=== PATIENT | female | born 2000 | race Caucasian/White ===

== ENCOUNTER 2024-07-19 13:48 | Outpatient (OUT) | payer OTHER, SELFPAY ==
--- OUTSIDE RECORDS SUMMARY | 2024-07-19 14:00 | XMS_ITS | Encounter Summary ---
Author Organization [facility] Address [address] [place] [address] Care Team Providers Care Elder Assistant Name Role Phone Margueriet Hayes MD Primary Care Provider [phone] Marguerite Hayes MD Unavailable [phone] Simi Marie CUSTOMS CONSULTANT Unavailable [phone] Karey Lan CUSTOMS CONSULTANT Unavailable [phone] Encounter Details Date Type Department Care Team (Late st Contact Info) Description 07/04/2022 Abstract [facility] [address] [place] [id number] Alexandra Jordan, DPM [address] [place], [place] [id number] Social History Tobacco Use Types Packs/Day Years Used Date Smoking Tobacco: Never Tobacco Cessation:Counseling Given: Not Answered Alcohol Use Standard Drinks/Week Comments Never 0 (1 standard drink = 0.6 oz pur e alcohol) Caffeine intake: none Comments Unknown Sex and Gender Information Value Date Recorded Sex Assigned at Not on file Legal Sex Female 7:17 PM EDT Gender Identity Female 06/30/2022 10:57 AM EDT Sexual Orientation Not on file documented as of this encounter Plan of Treatment Not on file documented as of this encounter Visit Diagnoses Not on filedocumented in this encounter Care Teams Elder Assistant Relationship Specialty Start Date End Date Marguerite Hayes MD [address] [place] [address] PCP - General Family Medicine 07/05/22 Marguerite Hayes MD [address] [place] [address] [facility] 05/16/23 Simi Marie NP [address] [place] [address] [facility] 08/15/23 Karey Lan NP [address] [place] [address] [facility] 11/15/23 documented as of this encounter
--- OUTSIDE RECORDS SUMMARY | 2024-07-19 14:00 | XMS_ITS | Clinical Summary ---
Author Organization [facility] tem Address [id number] [address] [place] [address] Care Team Providers Care Video Production Coordinator Name Role Phone Marguerite Hayes MD Primary Care Provider [phone] Allergies Active Allergy Reactions Criticality Noted Date Comments Ibuprofen Swelling 07/04/2022 Medications cetirizine (ZyrTEC) 10 mg tablet Take 1 tablet (10 mg total) by mouth in the morning. Active zolpidem (AMBIEN) 5 mg tabletIndication s:Other insomnia Take 1 tablet (5 mg total) by mouth nightly as needed for sleep. 1 tablet 11/08/2023 Active levETIRAcetam (KEPPRA) 500 mg tabletIndication s:Seizure-like activity (CMS-HCC) Take 1 tablet (500 mg total) by mouth in the morning and 1 tablet (500 mg total) before bedtime. 180 tablet 2 01/24/2024 Active nortriptyline (PAMELOR) 25 mg capsuleIndicatio ns:Chronic migraine without aura without status migrainosus, not intractable Take 1 capsule (25 mg total) by mouth nightly. 90 capsule 2 01/24/2024 Active Active Problems No known active problems Encounters Date Type Department Care Team Description 07/10/2024 Telephone [facility] - Wilber Garduno MD [address] [place] [address] Jo-Ann Bhandari from Last 3 Months Social History Tobacco Use Types Packs/Day Years Used Date Smoking Tobacco: Never Smokeless Tobacco: Never Tobacco Cessation:Counseling Given: Not Answered Alcohol Use Standard Drinks/Week Comments Not Currently 0 (1 standard drink = 0.6 oz pur e alcohol) Childcare Answer Date Recorded Childcare Unknown 01/12/2020 Employment Answer Date Recorded Employment Unknown 01/12/2020 Hunger Screening Answer Date Recorded Within the past 12 months we worried whether our food would run out before we got money to buy more. Never True 02/05/2023 Within the past 12 months th e food we bought just didn't last and we didn't have money to get more. Never True 02/05/2023 Purpose - Life Answer Date Recorded Purpose and direction in life Unknown Comments No Sex and Gender Information Value Date Recorded Sex Assigned at Not on file Legal Sex Female 11:58 AM EDT Gender Identity Not on file Sexual Orientation Not on file Last Filed Vital Signs Vital Sign Reading Time Taken Comments Blood Pressure 111/74 02/18/2024 10:36 AM EST Pulse 96 02/18/2024 10:36 AM EST Temperature 36.8 C (98.2 F) 02/18/2024 10:36 AM EST Respiratory Rate 18 02/18/2024 10:36 AM EST Oxygen Saturation 100% 02/18/2024 10:36 AM EST Inhaled Oxygen Concentration - - Weight 57.2 kg (126 lb) 02/18/2024 10:36 AM EST Height 154.9 cm (5' 1 ) 02/18/2024 10:36 AM EST Body Mass Index 23.81 02/18/2024 10:36 AM EST Plan of Treatment Health Maintenance Due Date Last Done Comments Depression Screening 2012 Pap Smear 2021 COVID-19 Vaccine (3 2023-2 5 season) 2023 01/13/2021, 10/10/2020 Influenza Vaccine 10/15/2024 12/22/2018 Adult BMI Screening 02/17/2025 02/18/2024 Tobacco Screening 02/17/2025 02/18/2024 DTaP,Tdap and Td Vaccines (8 - Td or Tdap) 06/17/2030 06/17/2020, 08/30/2013, 10/10/2006, Additional history exists Medical Devices Not on file Insurance [place] [employer] Advance Directives * Full Code (Latest Code Status on File) Date Activated Date Inactivated Comments 07/11/2020 7:14 PM 07/11/2020 9:54 PM Care Teams Video Production Coordinator Relationship Specialty Start Date End Date Marguerite Hayes MD [address] [place] [address] PCP - General Family Medicine 01/12/20
--- OUTSIDE RECORDS SUMMARY | 2024-07-19 14:00 | XMS_ITS | Encounter Summary ---
Author Organization [facility] Address [id number] [address] [place] [address] Care Team Providers Care Glaze Mixer Name Role Phone Marguerite Hayes MD Primary Care Provider [phone] Encounter Details Date Type Department Care Team (Late st Contact Info) Description 10/14/2023 Telephone [facility] - Wilber Garduno MD [address] [address] [place] Social History Tobacco Use Types Packs/Day Years Used Date Smoking Tobacco: Never Smokeless Tobacco: Never Alcohol Use Standard Drinks/Week Comments Yes 0 (1 standard drink = 0.6 oz pur e alcohol) Twice monthly Childcare Answer Date Recorded Childcare Unknown 01/12/2020 [...] on file Sexual Orientation Not on file documented as of this encounter Plan of Treatment Not on file documented as of this encounter Visit Diagnoses Not on filedocumented in this encounter Care Teams Glaze Mixer Relationship Specialty Start Date End Date Marguerite Hayes MD [address] [place] [address] PCP - General Family Medicine 01/12/20 documented as of this encounter
--- OUTSIDE RECORDS SUMMARY | 2024-07-19 14:00 | XMS_ITS | Encounter Summary ---
Author Organization [facility] Address [id number] [address] [place] [address] Care Team Providers Care Office Manager Executive Assistant Name Role Phone Marguerite Hayes MD Primary Care Provider [phone] Encounter Details Date Type Department Care Team (Late st Contact Info) Description 07/10/2024 Telephone [facility] - Wilber Garduno MD [address] [facility] [address] [address] Jo-Ann Bhandari Social History Tobacco Use Types Packs/Day Years Used Date Smoking Tobacco: Never Smokeless Tobacco: Never Alcohol Use Standard Drinks/Week Comments Not Currently [...] on file documented as of this encounter Miscellaneous Notes * Telephone Encounter - Jo-Ann Bhandari - 07/10/2024 10:10 AM EDT Boom called in to let JAMIE know that she is and her OB wants to know is she can deliver danuta level 1. Also she states that the Keppra is making her drowsy now and is there something else shecan take? * Telephone Encounter - Wilber Garduno MD - 07/10/2024 10:10 AM EDT If Gorge is making her too drowsy, I suggest taking 1/2 tablet (250 mg) in the morning, and a whole pill (500 mg) at night. Call if there is any seizure activity. Regarding the question from her sales and marketing coordinator, I have no idea what a ???level 1?? is. documented in this encounter Plan of Treatment Not on file documented as of this encounter Visit Diagnoses Not on filedocumented in this encounter Care Teams Office Manager Executive Assistant Relationship Specialty Start Date End Date Marguerite Hayes MD [address] [place] [address] PCP - General Family Medicine 01/12/20 documented as of this encounter
--- OUTSIDE RECORDS SUMMARY | 2024-07-19 14:00 | XMS_ITS | Clinical Summary ---
Author Organization [facility] Address [address] [place] [address] Care Team Providers Care Release Specialist Name Role Phone Marguerite Hayes MD Primary Care Provider [phone] Karey Lan NP Unavailable [phone] Allergies Active Allergy Reactions Criticality Noted Date Comments Ibuprofen Swelling 06/14/2022 Medications cetirizine (ZyrTEC) 5 MG chewable tablet Chew Daily. Ac tive multivitamin () 27-0.8 MG tabletIndication s:Wellness examination Take 1 tablet by mouth Daily 30 tablet 3 5 Active levETIRAcetam (Keppra) 500 MG tabletIndication s:Seizure Take 500 mg by mouth in the morning and 500 mg before bedtime. 07/05/19 25 Discontinu ed(Pregnan cy) nortriptyline (Pamelor) 50 MG capsuleIndicatio ns:Sleeping difficulty,Anxie ty TAKE 1 CAPSULE BY MOUTH AT BEDTIME 90 capsule 1 5 07/05/19 25 Discontinu ed(Pregnan cy) Active Problems Problem Noted Date Diagnosed Date Seizures 05/02/2024 Intractable migraine with status migrainosus Bipolar 1 disorder 05/02/2024 Fibromyalgia 10/25/2022 Estimated Date of Delivery Comme nts Yes 01/27/2025 Based on last me nstrual period of 04/22/2024 (Exact Date) Encounters Date Type Department Care Team Description 07/04/2024 10:30 AM EDT Routine [facility] [address] [place] [address] Floro, Juliet L, CNM examination or test, positive result (Primary Dx); Encounter for supervision of other normal , first trimester; Seizure disorder (CMS/HCC) 07/04/2024 10:00 AM EDT Ancillary Procedure [facility] ULTR[facility] [address] [facility] [address] [place] [address] Unspecified ovarian cyst, right side 07/04/2024 Travel 06/19/2024 Results Follow-Up [facility] [address] [facility] [place] [address] Marguerite Edwards MA 06/18/2024 Orders Only [facility] [address] [facility] [place] [address] Juliet Sosa CNM examination or test, positive result (Primary Dx) 06/15/2024 8:30 AM EDT Ancillary Procedure [facility] [address] [facility] [address] [place] [address] Amenorrhea 06/15/2024 Travel 05/24/2024 Refill [facility] FM [address] [facility] [place] [address] Karey Lan NP Sleeping difficulty; Anxiety 05/22/2024 11:00 AM EDT Social Work [facility] BH [address] [facility] [place] [address] Keshia Mcneill, LAY OUT CARPENTER Sleeping difficulty; Anxiety; Bipolar 1 disorder (CMS/HCC) 05/22/2024 Bamboo flowsheet [facility] [address] [facility] [place] [address] Keshia Mcneill, LAY OUT CARPENTER 05/22/2024 Travel 05/21/2024 Orders Only [facility] [address] [facility] [place] [address] Juliet Sosa CNM Amenorrhea 05/07/2024 Telephone [facility] [address] [facility] [place] [address] Keshia Mcneill, LAY OUT CARPENTER 05/02/2024 12:30 PM EDT Office Visit [facility] FM [address] [facility] [place] [address] Karey Lan NP Wellness examination (Primary Dx); Sleeping difficulty; Hx of iron deficiency anemia; Anxiety; Vaping nicotine dependence, tobacco product; Bipolar 1 disorder (CMS/HCC); Fibromyalgia; Intractable migraine with status migrainosus, unspecified migraine type (CMS/HCC); Seizures (CMS/HCC) 05/02/2024 Bamboo flowsheet [facility] [address] [place] [address] Karey Lna NP 05/02/2024 Travel 04/25/2024 Telephone [facility] [address] [place] [address] Bria Aleman MA 04/20/2024 Telephone [facility] [address] [place] [address] Karey Lan NP from Last 3 Months Family History Relation Name Status Comments Father Alive Mother Alive Social History Tobacco Use Types Packs/Day Years Used Date Smoking Tobacco: Every Day Smokeless Tobacco: Never Tobacco Cessation:Ready to Q uit: Not Asked; Counseling Given: Not Answered Comments:Vapes daily Alcohol Use Standard Drinks/Week Comments Not Currently 0 (1 standard drink = 0.6 oz pure alcohol) Caffeine intake: 1 redbull/soda daily Humiliation, Afraid, Rape, and Kick questionnair e Answer Date Recorded Within the last year, have y ou been afraid of your partner or ex-partner? No 03/17/2023 Within the last year, have y ou been humiliated or emotionally abused in other ways by your partner or ex-partner? No Within the last year, have y ou been kicked, hit, slapped, or otherwise physically hurt by your partner or ex-partner? No 03/17/2023 Within the last year, have y ou been raped or forced to have any kind of sexual activity by your partner or ex-partner? No 03/17/2023 Social Connection and Isolat ion Panel [NHANES] Answer Date Recorded In a typical week, how many times do you talk on the phone with family, friends, or neighbors? Twice a week 03/17/2023 How often do you get togethe r with friends or relatives? More than three times a week 03/17/2023 How often do you attend chur ch or restorationism services? 1 to 4 times per year 03/17/2023 Do you belong to any clubs o r organizations such as latter-day groups, unions, fraternal or athletic groups, or school groups? No 03/17/2023 How often do you attend meet ings of the clubs or organizations you belong to? Patient declined 03/17/2023 Are you , , di vorced, , never , or living with a partner? Never 03/17/2023 AUDIT-C Answer Date Recorded Q1: How often do you have a drink containing alcohol? Never 03/17/2023 Q2: How many drinks containi ng alcohol do you have on a typical day when you are drinking? Patient does not drink Q3: How often do you have si x or more drinks on one occasion? Never 03/17/2023 Overall Financial Resource Strain (CARDIA) Answe r Date Recorded How hard is it for you to pa y for the very basics like food, housing, medical care, and heating? Not very hard 03/17/2023 PHQ-2 Answer Date Recorded Patient Health Questionnaire-2 Score 6 05/02/2024 [facility] - Occupational Stress Questionnaire Answer Date Recorded Do you feel stress - tense, restless, nervous, or anxious, or unable to sleep at night because your mind is troubled all the time - these days? Very much 03/17/2023 Exercise Vital Sign Answer Date Recorde d On average, how many days pe r week do you engage in moderate to strenuous exercise (like a brisk walk)? 7 days 03/17/2023 On average, how many minutes do you engage in exercise at this level? 110 min 03/17/2023 Hunger Vital Sign Answer Date Recorded Within the past 12 months, y ou worried that your food would run out before you got the money to buy more. Never true 03/17/19 24 Within the past 12 months, t he food you bought just didn't last and you didn't have money to get more. Never true 03/17/2023 PRAPARE - Transportation Answer Date Re corded In the past 12 months, has l ack of transportation kept you from medical appointments or from getting medications? No 02/2023 In the past 12 months, has l ack of transportation kept you from meetings, work, or from getting things needed for daily living? No 03/17/2023 Housing Stability Vital Sign Answer Tristen e Recorded In the last 12 months, was t here a time when you were not able to pay the mortgage or rent on time? No 03/17/2023 In the last 12 months, how many places have you lived? 2 03/17/2023 In the last 12 months, was t here a time when you did not have a steady place to sleep or slept in a group home (including now)? No 03/17/2023 Estimated Date of Delivery Comme nts Yes 01/27/2025 Based on last me nstrual period of 04/22/2024 (Exact Date) Sex and Gender Information Value Date Recorded Sex Assigned at Not on file Legal Sex Female 7:17 PM EDT Gender Identity Female 06/30/2022 10:57 AM EDT Sexual Orientation Not on file Last Filed Vital Signs Vital Sign Reading Time Taken Comments Blood Pressure 108/60 07/04/2024 10:22 AM EDT Pulse 77 05/02/2024 12:30 PM EDT Temperature 36.3 C (97.4 F) 05/02/2024 12:30 PM EDT Respiratory Rate - - Oxygen Saturation 98% 05/02/2024 12:30 PM EDT Inhaled Oxygen Concentration - - Weight 56.2 kg (124 lb) 07/04/2024 10:22 AM EDT Height 154.9 cm (5' 1 ) 05/02/2024 12:30 PM EDT Body Mass Index 23.43 05/02/2024 12:30 PM EDT Plan of Treatment Health Maintenance Due Date Last Done Comments Influenza Vaccine (Season Ended) 2024 12/23/19 Goals Goal Patient Goal Type Associated Problems Recent Progress Patient-Stated? Author Reminders Care Plan OB Reminders No Open Scheduling, Background Procedures Procedure Name Priority Date/Time Associated Diagnosis Comments CHLAMYDIA/N. GONORRHOEAE RNA, TMA, UROGENITAL Routine 07/04/2024 12:20 PM EDT examination or test, positive result URINALYSIS MICROSCOPIC Routine 12:20 PM EDT examination or test, positive result DRUG TOX MONITORIGN 6 W/ CONF,URINE Routine 07/04/2024 12:20 PM EDT examination or test, positive result CULTURE, URINE, ROUTINE Routine 07/04/2024 12:20 PM EDT examination or test, positive result HEPATITIS C ANTIBODY Routine 07/04/2024 10:33 AM EDT examination or test, positive result ABO GROUP AND RH TYPE Routine 07/04/2024 10:33 AM EDT examination or test, positive result HIV-1 AND HIV-2 ANTIBODIES Routine 07/04/2024 10:33 AM EDT examination or test, positive result TSH W/REFLEX TO FT4 Routine 07/04/2024 1 0:33 AM EDT examination or test, positive result HEMOGLOBIN A1C Routine 07/04/2024 10:33 AM EDT examination or test, positive result RPR (DX) W/REFL TITER AND CONFIRMATORY TESTING Routine 07/04/2024 10:33 AM EDT examination or test, positive result ANTIBODY SCREEN, RBC W/REFL ID, TITER AND AG Routine 07/04/2024 10:33 AM EDT examination or test, positive result CBC Routine 07/04/2024 10:33 AM EDT examination or test, positive result RUBELLA AB (IGG), IMMUNE STATUS Routine 07/04/2024 10:33 AM EDT examination or test, positive result HEPATITIS B SURFACE ANTIGEN W/REFL CONFIRM Routine 07/04/2024 10:33 AM EDT examination or test, positive result US OB TRANSVAGINAL Routine 07/04/2024 10 :29 AM EDT Unspecified ovarian cyst, right side POCT , URINE Routine 06/19/2024 9:21 AM EDT Amenorrhea US OB < 14 WEEKS EARLY Routine 8:55 AM EDT Amenorrhea TSH W/REFLEX TO FT4 Routine 05/02/2024 1 :37 PM EDT LIPID PANEL Routine 05/02/2024 1:37 PM EDT Wellness examination COMPREHENSIVE METABOLIC PANEL Routine 05/02/2024 1:37 PM EDT Wellness examination CBC (INCLUDES DIFF/PLT) Routine 05/02/2024 1:37 PM EDT Hx of iron deficiency anemia from Last 3 Months Results * URINALYSIS MICROSCOPIC (07/04/2024 12:20 PM EDT) WBC NONE SEEN < OR = 5 /HPF [facility] RBC NONE SEEN < OR = 2 /HPF [facility] SQUAMOUS EPITHELIAL CELLS NONE SEEN < OR = 5 /HPF [facility] BACTERIA NONE SEEN NONE SEEN /HPF [facility] HYALINE CAST NONE SEEN NONE SEEN /LPF [facility] NOTE [facility] Comment: This urine was analyzed for the presence of WBC, RBC, bacteria, casts, and other formed elements. Only those elements seen were reported. 07/04/2024 12:2 0 PM EDT 07/05/2024 1:40 AM EDT Narrative Resulting Agency Comment Performing Organization Information Site ID: QPT Name: [facility] Address: [address] [place] [address], [address] [place] [phone] Director: Rakesh Ann MD us Juliet Sosa CNM LAB BLOOD ORDERABLES Final R esult [facility] * DRUG TOX MONITORIGN 6 W/ CONF,URINE (07/04/2024 12:20 PM EDT) AMPHETAMINES NEGATIVE <500 ng/mL [facility] BARBITURATES NEGATIVE <300 ng/mL [facility] BENZODIAZEPINES NEGATIVE <100 ng/mL [facility] COCAINE METABOLITES NEGATIVE <150 ng/mL [facility] MARIJUANA METABOLITE 20 NEGATIVE <20 ng/mL [facility] METHADONE METABOLITE NEGATIVE <100 ng/mL [facility] OPIATES NEGATIVE <100 ng/mL [facility] OXYCODONE NEGATIVE <100 ng/mL [facility] PHENCYCLIDINE NEGATIVE <25 ng/mL [facility] (ALWAYS MESSAGE) [facility] Comment: See Note 1 Note 1 This drug testing is for medical treatment only. Analysis was performed as non-forensic testing and these results should be used only by healthcare providers to render diagnosis or treatment, or to monitor progress of medical conditions. For assistance with interpreting these drug results, please contact a [facility] Toxicology Specialist: [phone] ( ), M-F, 8am-6pm EST. 07/04/2024 12:2 0 PM EDT 07/05/2024 1:40 AM EDT Narrative Resulting Agency Comment Performing Organization Information Site ID: QPT Name: [facility] Address: [address] [place] [address], [address] [place] [phone] Director: Rakesh Ann MD Juliet Sosa CNM LAB BODY FLUIDS AND STOOLS O RDERABLES Final Result [facility] * C. trachomatis / N. gonorrhoeae, DNA probe (07/04/2024 12:20 PM EDT) CHLAMYDIA TRACHOMATIS RNA, TMA, UROGENITAL NOT DETECTED NOT DETECTED [facility] NEISSERIA GONORRHOEAE RNA, TMA, UROGENITAL NOT DETECTED NOT DETECTED [facility] (ALWAYS MESSAGE) [facility] Comment: The analytical performance characteristics of this assay, when used to test SurePath(TM) specimens have been determined by [employer]. The modifications have not been cleared or approved by the FDA. This assay has been validated pursuant to the CLIA regulations and is used for clinical purposes. For additional information, please refer to https://education.[employer]/faq/XGX140 (This link is being provided for information/ educational purposes only.) Swab Urine specimen obtained by clean catch procedure / Unknown 07/04/2024 12:20 PM EDT 07/05/2024 1:40 AM EDT Narrative Resulting Agency Comment Performing Organization Information Site ID: QPT Name: [facility] Address: [address] [place] [address], [address] [place] [phone] Director: Rakesh Ann MD Juliet Sosa CNM LAB PATHOLOGY ORDERABLES Fin al Result Performing Organization Address [facility] Co de Phone Number [facility] * Urine culture (07/04/2024 12:20 PM EDT) MICRO NUMBER [id number] [facility] SPECIMEN QUALITY Adequate [facility] SOURCE: ([facility]) URINE [facility] STATUS FINAL [facility] RESULT SEE NOTE [facility] Comment: No Growth Urine Urine specimen obtained by clean catch procedure / Unknown 07/04/2024 12:20 PM EDT 07/05/2024 1:40 AM EDT Narrative Resulting Agency Comment Performing Organization Information Site ID: QPT Name: [facility] Address: [address] [place] [address], [address] [place], [place] [id number] Director: Rakesh Ann MD Juliet Sosa CNM LAB MICROBIOLOGY - GENERAL O RDERABLES Final Result Performing Organization Address [facility] de Phone Number [facility] * TSH W/REFLEX TO FT4 (07/04/2024 10:33 AM EDT) Only the most recent of2 resultswithin the time period is included. TSH W/REFLEX TO FT4 1.27 mIU/L [facility] Comment: Reference Range > or = 20 Years 0.40-4.50 Ranges First trimester 0.26-2.66 Second trimester 0.55-2.73 Third trimester 0.43-2.91 07/04/2024 10:3 3 AM EDT 07/04/2024 10:33 AM EDT Narrative [facility] - 07/05/2024 12:49 PM EDT MULTIPLE COLLECTION TIMES FOR SAME TEST TYPE. Resulting Agency Comment Performing Organization Information Site ID: QPT Name: [facility] Address: [address] [place] [address], [address] [place] [phone] Director: Rakesh Ann MD Juliet Nancy Tubbso [facility] LAB BLOOD ORDERABLES Final R esult Performing Organization Address [facility] de Phone Number [facility] * Hepatitis C antibody (07/04/2024 10:33 AM EDT) HEPATITIS C ANTIBODY NON-REACTI VE NON-REACT HARIKA [facility] Comment: HCV antibody was non-reactive. There is no laboratory evidence of HCV infection. In most cases, no further action is required. However, if recent HCV exposure is suspected, a test for HCV RNA (test code 55844) is suggested. For additional information please refer to http://[employer]/faq/QZD06b5 (This link is being provided for informational/ educational purposes only.) Blood Venous blood specimen / Unknown 07/04/2024 10:33 AM EDT 07/04/2024 10:33 AM EDT Narrative [facility] - 07/05/2024 12:49 PM EDT MULTIPLE COLLECTION TIMES FOR SAME TEST TYPE. Resulting Agency Comment Performing Organization Information Site ID: QPT Name: [facility] Address: [address] [place] [address], [address] [place] [phone] Director: Rakesh Ann MD Juliet L Floro [facility] LAB BLOOD ORDERABLES Final R esult Performing Organization Address [facility] Co de Phone Number [facility] * ABO/Rh (07/04/2024 10:33 AM EDT) ABO GROUP O [facility] RH TYPE RH(D) POSITIVE [facility] Comment: For additional information, please refer to http://[employer].[facility]/faq/TJI274 (This link is being provided for informational/ educational purposes only.) Blood Venous blood specimen / Unknown 07/04/2024 10:33 AM EDT 07/04/2024 10:33 AM EDT Narrative [facility] - 07/05/2024 12:49 PM EDT MULTIPLE COLLECTION TIMES FOR SAME TEST TYPE. Resulting Agency Comment Performing Organization Information Site ID: QPT Name: [facility] Address: [address] [place] [address], [address] [place] [phone] Director: Rakesh Ann MD Juliet Nancy Sosa [facility] LAB BLOOD ORDERABLES Final R esult Performing Organization Address [facility] Co de Phone Number [facility] * Rubella antibody, IgG (07/04/2024 10:33 AM EDT) RUBELLA AB (IGG), IMMUNE STATUS 1.45 Index [facility] Comment: Index Interpretation ----- <0.90 Not consistent with immunity 0.90-0.99 Equivocal > or = 1.00 Consistent with immunity The presence of rubella IgG antibody suggests immunization or past or current infection with rubella virus. Blood Venous blood specimen / Unknown 07/04/2024 10:33 AM EDT 07/04/2024 10:33 AM EDT Narrative [facility] - 07/05/2024 12:49 PM EDT MULTIPLE COLLECTION TIMES FOR SAME TEST TYPE. Resulting Agency Comment Performing Organization Information Site ID: QPT Name: [facility] Address: [address] [place] [address], [address] [place] [phone] Director: Rakesh Ann MD us Julietarmond Sosa [facility] LAB BLOOD ORDERABLES Final R esult Performing Organization Address [facility] de Phone Number [facility] * RPR (07/04/2024 10:33 AM EDT) RPR (MONITOR) W/REFL TITER NON-REACTI VE NON-REACTI VE [facility] Blood Venous blood specimen / Unknown 07/04/2024 10:33 AM EDT 07/04/2024 10:33 AM EDT Narrative [facility] - 07/05/2024 12:49 PM EDT MULTIPLE COLLECTION TIMES FOR SAME TEST TYPE. Resulting Agency Comment Performing Organization Information Site ID: QPT Name: [facility] Address: [facility], [address] [place] [address] Director: Rakesh Ann MD us Juliet PERES LAB BLOOD ORDERABLES Final R esult [facility] * HIV-1 and HIV-2 antibodies (07/04/2024 10:33 AM EDT) [facility] HIV AG/AB, 4TH GEN NON-REACT HARIKA NON-REACT HARIKA [facility] Comment: HIV-1 antigen and HIV-1/HIV-2 antibodies were not detected. There is no laboratory evidence of HIV infection. PLEASE NOTE: This information has been disclosed to you from records whose confidentiality may be protected by state law. If your state requires such protection, then the state law prohibits you from making any further disclosure of the information without the specific written consent of the person to whom it pertains, or as otherwise permitted by law. A general authorization for the release of medical or other information is NOT sufficient for this purpose. For additional information please refer to http://education.[employer]/faq/ALQ987 (This link is being provided for informational/ educational purposes only.) The performance of this assay has not been clinically validated in patients less than 2 years old. Blood Venous blood specimen / Unknown 07/04/2024 10:33 AM EDT 07/04/2024 10:33 AM EDT Narrative [facility] - 07/05/2024 12:49 PM EDT MULTIPLE COLLECTION TIMES FOR SAME TEST TYPE. Resulting Agency Comment Performing Organization Information Site ID: QPT Name: [facility] Address: [facility], [address] [place] [address] Director: Rakesh Ann MD us Juliet Sosa CNM LAB BLOOD ORDERABLES Final R esult [facility] * Hepatitis B surface antigen (07/04/2024 10:33 AM EDT) Pathologist [facility] HEPATITIS B SURFACE ANTIGEN NON-REACTI VE NON-REACTI VE [facility] Comment: For additional information, please refer to http://education.[employer]/faq/NPC611 (This link is being provided for informational/ educational purposes only.) Blood Venous blood specimen / Unknown 07/04/2024 10:33 AM EDT 07/04/2024 10:33 AM EDT Narrative [facility] - 07/05/2024 12:49 PM EDT MULTIPLE COLLECTION TIMES FOR SAME TEST TYPE. Resulting Agency Comment Performing Organization Information Site ID: QPT Name: [facility] Address: [address] [place] [address], [address] [place] [phone] Director: Rakesh Ann MD Juliet Sosa CNM LAB BLOOD ORDERABLES Final R esult [facility] * CBC (07/04/2024 10:33 AM EDT) Pathologist [facility] WHITE BLOOD CELL COUNT 7.3 3.8 - 10.8 Thousand/u L [facility] RED BLOOD CELL COUNT 3.94 3.80 - 5.10 Million/uL [facility] HEMOGLOBIN 12.2 11.7 - 15.5 g/dL [facility] HEMATOCRIT 37.0 35.0 - 45.0 % [facility] MCV 93.9 80.0 - 100.0 fL [facility] MCH 31.0 27.0 - 33.0 pg [facility] MCHC 33.0 32.0 - 36.0 g/dL [facility] Comment: For adults, a slight decrease in the calculated MCHC value (in the range of 30 to 32 g/dL) is most likely not clinically significant; however, it should be interpreted with caution in correlation with other red cell parameters and the patient's clinical condition. RDW 12.7 11.0 - 15.0 % [facility] PLATELET COUNT 206 140 - 400 Thousand/u L [facility] MPV 10.0 7.5 - 12.5 fL [facility] Blood Venous blood specimen / Unknown 07/04/2024 10:33 AM EDT 07/04/2024 10:33 AM EDT Narrative [facility] - 07/05/2024 12:49 PM EDT MULTIPLE COLLECTION TIMES FOR SAME TEST TYPE. Resulting Agency Comment Performing Organization Information Site ID: QPT Name: [facility] Address: Viv Sosa , [address] [place] [phone] Director: Rakesh Ann MD Juliet PERES LAB BLOOD ORDERABLES Final R esult Performing Organization Address [facility] de Phone Number [facility] * Antibody screen (07/04/2024 10:33 AM EDT) [facility] ANTIBODY SCREEN, RBC W/REFL ID, TITER AND AG NO ANTIBODIES DETECTED [facility] Comment: Reference range No antibodies detected This assay is a screening test for the detection of red blood cell antibodies. The test is not to be used for pretransfusion screening or for the medical management of an alloimmunized . Blood Venous blood specimen / Unknown 07/04/2024 10:33 AM EDT 07/04/2024 10:33 AM EDT Narrative [facility] - 07/05/2024 12:49 PM EDT MULTIPLE COLLECTION TIMES FOR SAME TEST TYPE. Resulting Agency Comment Performing Organization Information Site ID: QPT Name: [facility] Address: Viv Sosa , [address] [place] [phone] Director: Rakesh Ann MD Juliet PERES LAB BLOOD ORDERABLES Final R esult Performing Organization Address [facility] de Phone Number [facility] * Hemoglobin A1c (07/04/2024 10:33 AM EDT) Pathologist [facility] Hemoglobin A1C 5.0 <5.7 % [facility] Comment: For the purpose of screening for the presence of diabetes: <5.7% Consistent with the absence of diabetes 5.7-6.4% Consistent with increased risk for diabetes (prediabetes) > or =6.5% Consistent with diabetes This assay result is consistent with a decreased risk of diabetes. Currently, no consensus exists regarding use of hemoglobin A1c for diagnosis of diabetes in children. According to [place] Diabetes Association (ADA) guidelines, hemoglobin A1c <7.0% represents optimal control in non- diabetic patients. Different metrics may apply to specific patient populations. Standards of Medical Care in Diabetes(ADA). Blood Venous blood specimen / Unknown 07/04/2024 10:33 AM EDT 07/04/2024 10:33 AM EDT Narrative [facility] - 07/05/2024 12:49 PM EDT MULTIPLE COLLECTION TIMES FOR SAME TEST TYPE. Resulting Agency Comment Performing Organization Information Site ID: QPT Name: [employer] [facility] Address: [address] [place] [address], [address] [place] [phone] Director: Rakesh Ann MD us Juliet Sosa CNM LAB BLOOD ORDERABLES Final R esult [facility] * US OB transvaginal (07/04/2024 10:29 AM EDT) Anatomical Region Laterality Modality Body Ultrasound 07/04/2024 7:19 PM EDT Narrative 07/04/2024 7:19 PM EDT EXAM: OB Ultrasound: REASON FOR EXAM: Followup right ovarian cyst; early . COMPARISON: 06/15/2024. TECHNIQUE: Grayscale and M-mode Doppler imaging is performed. FINDINGS Sac: 4.7 cm CRL: 3.5 cm GA for sonogram: 10.4 wks (09.6 - 11.2) TAI: 01/28/2025 LMP: 04/23/24 Age by LMP: 10 w 2 d Age by US today: 10 w 3 d TAI by LMP: 01/28/2025 TAI by US today: 01/27/2025 Uterus: 12.0 x 9.2 x 6.7 cm Rt Ovary: 3.4 x 4.6 x 2.5 cm Lt Ovary: 3.8 x 2.1 x 1.7 cm Cervix: 3.3 cm A mildly complicated right ovarian cyst is present measuring 3.0 x 2.0 cm (3.3 x 2.6 cm previously). Left ovary appears normal. There is a minute hypoechoic subchorionic collection measuring 1.5 x 1.0 cm. IMPRESSION: 1. Single live intrauterine gestation estimated at 10.4 weeks which is concordant with the prior ultrasound. 2. Reduction in mildly complicated corpus luteal cyst of the right ovary. Comparative measurements given above. 3. Tiny subchorionic hemorrhage. *This report is generated using voice recognition reporting (Platypus Platform). On occasion PowerScribe erroneously drops words from the report or replaces the spoken word with similar sounding words. Please call with any questions/concerns regarding this report.* Dictated and transcribed 07/04/2024/elke This report has been electronically signed and approved by the interpreting radiologist. Procedure Note Cristi German MD - 07/04/2024 EXAM: OB Ultrasound: REASON FOR EXAM: Followup right ovarian cyst; early . COMPARISON: 06/15/2024. TECHNIQUE: Grayscale and M-mode Doppler imaging is performed. FINDINGS Sac: 4.7 cm CRL: 3.5 cm GA for sonogram: 10.4 wks (09.6 - 11.2) TAI: 01/28/2025 LMP: 04/23/24 Age by LMP: 10 w 2 d Age by US today: 10 w 3 d TAI by LMP: 01/28/2025 TAI by US today: 01/27/2025 Uterus: 12.0 x 9.2 x 6.7 cm Rt Ovary: 3.4 x 4.6 x 2.5 cm Lt Ovary: 3.8 x 2.1 x 1.7 cm Cervix: 3.3 cm A mildly complicated right ovarian cyst is present measuring 3.0 x 2.0 cm(3.3 x 2.6 cm previously). Left ovary appears normal. There is a minute hypoechoic subchorionic collection measuring 1.5 x 1.0cm. IMPRESSION: 1. Single live intrauterine gestation estimated at 10.4 weeks which isconcordant with the prior ultrasound. 2. Reduction in mildly complicated corpus luteal cyst of the right ovary.Comparative measurements given above. 3. Tiny subchorionic hemorrhage. *This report is generated using voice recognition reporting (Platypus Platform).On occasion PowerScribe erroneously drops words from the report orreplaces the spoken word with similar sounding words. Please call with anyquestions/concerns regarding this report.* Dictated and transcribed 07/04/2024/jf This report has been electronically signed and approved by theinterpreting radiologist. us Juliet Sosa CNM IMG OB US PROCEDURES Final R esult * (ABNORMAL) POCT , urine manually resulted (06/19/2024 9:21 AM EDT) Preg Test, Ur Positive Negative Urine 06/19/2024 9:21 AM EDT us Juliet Sosa CNM POINT OF CARE TEST ENTER/EMMA T ORDERABLES Final Result * US OB less than 14 weeks early (06/15/2024 8:55 AM EDT) Anatomical Region Laterality Modality Body Ultrasound 06/15/2024 1:10 PM EDT Narrative 06/15/2024 1:10 PM EDT TITLE OF EXAM: OB Ultrasound: REASON FOR EXAM: Dating. COMPARISON: None TECHNIQUE: Longitudinal and transverse grayscale, color Doppler and imaging of the cardiac activity obtained endovaginally. Measurements: heart rate: 168 bpm CRL: 1.3 cm GA for sonogram: 7.5 wk (06.9-08.1) Cervix Length: 3.1 cm TAI: 01/28/2025 Uterus: 9.8 x 7.6 x 5.6 cm Rt Ovary: 4.2 x 4.2 x 3.3 cm Lt Ovary: 2.9 x 2.5 x 1.5 cm Cervix: 3.1 cm FINDINGS: There is a single living intrauterine gestation. 7 weeks 4 days gestational age by today's ultrasound. TAI January 28, 2025. LMP unknown. Pipestone-rump length 1.32 cm. 7 weeks 4 days. Mean sac diameter 2.62 cm. 7 weeks 4 days. cardiac activity 168 bpm. Yolk sac 3 mm. Sac location fundal on the left. The uterus is of normal size and position. No significant pelvic free fluid. The left ovary is enlarged. Within the right ovary there is an anechoic septated hypoechoic irregular nodule with thick bands and septations and loculated components measuring 3.4 x 2.8 x 3.4 cm. Vascular flow identified within the ovary. Note: The worksheet denotes left ovary larger than the right. This is discordant with the images which show an enlarged right ovary with cystic lesion. IMPRESSION: 1. Single living intrauterine gestation. 7 weeks 4 days gestational age by ultrasound. TAI January 28, 2025. No definite early abnormalities. 2. Hemorrhagic or complex right ovarian cyst (based on image labeling). Given the presence of echogenic bands and thickening a follow-up ultrasound with attention to the right adnexa is recommended in approximately 2 to 4 weeks. 3. Follow-up ultrasound for growth and anatomy of the fetus at 20 to 22 weeks gestational age. *This report is generated using voice recognition reporting (Platypus Platform). On occasion [employer] Platform erroneously drops words from the report or replaces the spoken word with similar sounding words. Please call with any questions/concerns regarding this report.* Dictated and transcribed 06/15/24dpd This report has been electronically signed and approved by the interpreting radiologist. Procedure Note Kaleb Yanes MD - 06/15/2024 TITLE OF EXAM: OB Ultrasound: REASON FOR EXAM: Dating. COMPARISON: None TECHNIQUE: Longitudinal and transverse grayscale, color Doppler andimaging of the cardiac activity obtained endovaginally. Measurements: heart rate: 168 bpm CRL: 1.3 cm GA for sonogram: 7.5 wk (06.9-08.1) Cervix Length: 3.1 cm TAI: 01/28/2025 Uterus: 9.8 x 7.6 x 5.6 cm Rt Ovary: 4.2 x 4.2 x 3.3 cm Lt Ovary: 2.9 x 2.5 x 1.5 cm Cervix: 3.1 cm FINDINGS: There is a single living intrauterine gestation. 7 weeks 4 days gestational age by today's ultrasound. TAI January. LMP unknown. Pipestone-rump length 1.32 cm. 7 weeks 4 days. Mean sac diameter 2.62 cm. 7 weeks 4 days. cardiac activity 168 bpm. Yolk sac 3 mm. Sac location fundal on the left. The uterus is of normal size and position. No significant pelvic free fluid. The left ovary is enlarged. Within the right ovary there is an anechoicseptated hypoechoic irregular nodule with thick bands and septations andloculated components measuring 3.4 x 2.8 x 3.4 cm. Vascular flowidentified within the ovary. Note: The worksheet denotes left ovary larger than the right. This isdiscordant with the images which show an enlarged right ovary with cysticlesion. IMPRESSION: 1. Single living intrauterine gestation. 7 weeks 4 days gestational age byultrasound. TAI January 28, 2025. No definite early fetalabnormalities. 2. Hemorrhagic or complex right ovarian cyst (based on image labeling).Given the presence of echogenic bands and thickening a follow-upultrasound with attention to the right adnexa is recommended inapproximately 2 to 4 weeks. 3. Follow-up ultrasound for growth and anatomy of the fetus at 20 to 22weeks gestational age. *This report is generated using voice recognition reporting (Platypus Platform).On occasion Walvax Biotechnologycribe erroneously drops words from the report orreplaces the spoken word with similar sounding words. Please call with anyquestions/concerns regarding this report.* Dictated and transcribed 06/15/24/dpd This report has been electronically signed and approved by theinterpreting radiologist. us Juliet Sosa CNM IMG OB US PROCEDURES Final R esult * CBC and differential (05/02/2024 1:37 PM EDT) WHITE BLOOD CELL COUNT 6.4 3.8 - 10.8 Thousand/u L [facility] RED BLOOD CELL COUNT 4.27 3.80 - 5.10 Million/uL [facility] HEMOGLOBIN 13.3 11.7 - 15.5 g/dL [facility] HEMATOCRIT 39.4 35.0 - 45.0 % [facility] MCV 92.3 80.0 - 100.0 fL [facility] MCH 31.1 27.0 - 33.0 pg [facility] MCHC 33.8 32.0 - 36.0 g/dL [facility] Comment: For adults, a slight decrease in the calculated MCHC value (in the range of 30 to 32 g/dL) is most likely not clinically significant; however, it should be interpreted with caution in correlation with other red cell parameters and the patient's clinical condition. RDW 12.5 11.0 - 15.0 % [facility] PLATELET COUNT 195 140 - 400 Thousand/u L [facility] MPV 10.7 7.5 - 12.5 fL [facility] ABSOLUTE NEUTROPHILS 3,315 1,500 - 7,800 cells/uL [facility] ABSOLUTE LYMPHOCYTES 2,566 850 - 3,900 cells/uL [facility] ABSOLUTE MONOCYTES 320 200 - 950 cells/uL [facility] ABSOLUTE EOSINOPHILS 160 15 - 500 cells/uL [facility] ABSOLUTE BASOPHILS 38 0 - 200 cells/uL [facility] NEUTROPHILS 51.8 % [facility] LYMPHOCYTES 40.1 % [facility] MONOCYTES 5.0 % [facility] EOSINOPHILS 2.5 % [facility] BASOPHILS 0.6 % [facility] Blood Venous blood specimen / Unknown 05/02/2024 1:37 PM EDT 05/02/2024 1:38 PM EDT Narrative Resulting Agency Comment Performing Organization Information Site ID: QPT Name: [facility] Address: [address] [place] [address], [address] [place] [phone] Director: Rakesh Ann MD us Karey Lan NP LAB BLOOD ORDERABLES Final Resu lt [facility] * Lipid panel (05/02/2024 1:37 PM EDT) CHOLESTEROL, TOTAL 135 <200 mg/dL [facility] HDL CHOLESTEROL 50 > OR = 50 mg/dL [facility] TRIGLYCERIDES 53 <150 mg/dL [facility] LDL-CHOLESTEROL 72 mg/dL (calc) [facility] Comment: Reference range: <100 Desirable range <100 mg/dL for primary prevention; <70 mg/dL for patients with CHD or diabetic patients with > or = 2 CHD risk factors. LDL-C is now calculated using the Shaun-Koby calculation, which is a validated novel method providing better accuracy than the Friedewald equation in the estimation of LDL-C. Shaun SS et al. DAJA. 2013;310(19): 1992-6857 (http://education.[employer].Hail Varsity/faq/VMT560) CHOL/HDLC RATIO 2.7 <5.0 (calc) [facility] NON HDL CHOLESTEROL 85 <130 mg/dL (calc) [facility] Comment: For patients with diabetes plus 1 major ASCVD risk factor, treating to a non-HDL-C goal of <100 mg/dL (LDL-C of <70 mg/dL) is considered a therapeutic option. Blood Venous blood specimen / Unknown 05/02/2024 1:37 PM EDT 05/02/2024 1:38 PM EDT Narrative Resulting Agency Comment Performing Organization Information Site ID: QPT Name: [employer] [facility] Address: [address], [address] [place] [phone] Director: Rakesh Ann MD us Karey Lan COAT OPERATOR INSULATOR LAB BLOOD ORDERABLES Final Resu lt Performing Organization Address [facility]/ZIP Co de Phone Number [facility] * Comprehensive metabolic panel (05/02/2024 1:37 PM EDT) [facility] Glucose 81 65 - 99 mg/dL [facility] Comment: Fasting reference interval BUN 12 7 - 25 mg/dL [facility] Creatinine 0.61 0.50 - 0.96 mg/dL [facility] EGFR 129 > OR = 60 mL/min/1. 73m2 [facility] BUN/CREATININE RATIO SEE NOTE: 6 - 22 (calc) [facility] Comment: Not Reported: BUN and Creatinine are within reference range. Sodium 139 135 - 146 mmol/L [facility] Potassium, Bld 4.3 3.5 - 5.3 mmol/L [facility] Chloride 104 98 - 110 mmol/L [facility] Carbon Dioxide 26 20 - 32 mmol/L [facility] Calcium 9.1 8.6 - 10.2 mg/dL [facility] PROTEIN, TOTAL 7.2 6.1 - 8.1 g/dL [facility] ALBUMIN 4.7 3.6 - 5.1 g/dL [facility] GLOBULIN 2.5 1.9 - 3.7 g/dL (calc) [facility] ALBUMIN/GLOBULIN RATIO 1.9 1.0 - 2.5 (calc) [facility] BILIRUBIN, TOTAL 0.5 0.2 - 1.2 mg/dL [facility] ALKALINE PHOSPHATASE 48 31 - 125 U/L [facility] AST 11 10 - 30 U/L [facility] ALT 9 6 - 29 U/L [facility] Blood Venous blood specimen / Unknown 05/02/2024 1:37 PM EDT 05/02/2024 1:38 PM EDT Narrative Resulting Agency Comment Performing Organization Information Site ID: QPT Name: [employer] [facility] Address: [address], [address] [place] [address] Director: Rakesh Ann MD us Karey Lan NP LAB BLOOD ORDERABLES Final Resu lt Performing Organization Address City/[facility]/ZIP Co de Phone Number [facility] from Last 3 Months Additional Health Concerns Active Problems Noted Date Diagnosed Date OB Reminders 06/19/2024 Insurance [employer] Care Teams Release Specialist Relationship Specialty Start Date End Date Marguerite Hayes MD [address] [facility] [place] [address] PCP - General Family Medicine 07/05/22 Karey Lan NP [address] [facility] [place] [address] PCP - [facility] 11/15/23
--- OUTSIDE RECORDS SUMMARY | 2024-07-19 14:00 | XMS_ITS | Encounter Summary ---
Author Organization [facility] Address [address] [place] [address] Care Team Providers Care Service Station Helper Name Role Phone Marguerite Hayes MD Primary Care Provider [phone] Karey Lan NP Unavailable [phone] Encounter Details Date Type Department Care Team (Late st Contact Info) Description 06/19/2024 Results Follow-Up [facility] [address] [place] [address] Marguerite Edwards MA Social History Tobacco Use Types Packs/Day Years Used Date Smoking Tobacco: Every Day Smokeless Tobacco: Never Comments:Vapes daily Alcohol Use Standard Drinks/Week Comments [...] often do you attend chur ch or religion services? 1 to 4 times per year 03/17/2023 Do you belong to any clubs o r organizations such as sikh groups, unions, fraternal or athletic groups, or [...] Recorded Patient Health Questionnaire-2 Score 6 05/02/2024 [facility] - [...] place to sleep or slept in a [place] health care facility (including now)? No 03/17/2023 Estimated Date of [...] on file documented as of this encounter Goals Goal Patient Goal Type Associated Problems Recent Progress Patient-Stated? Author Reminders Care Plan OB Reminders No Open Scheduling, Background documented as of this encounter Visit Diagnoses Not on filedocumented in this encounter Additional Health Concerns Active Problems Noted Date Diagnosed Date OB Reminders 06/19/2024 Assessment Noted Time PHQ-9 Depression Total Score: 22 025 12:00 PM EDT documented as of this encounter Care Teams Service Station Helper Relationship Specialty Start Date End Date Marguerite Hayes MD [address] [place] [address] PCP - General Family Medicine 07/05/22 Karey Lan NP [address] [facility] [place] [address] PCP - [facility] 11/15/23 documented as of this encounter
[2024-07-19 14:19] LABS: BOX Test Reference Lab UNITY; BOX Test Sent Out UNITY
== END 2024-07-19 13:49 | disposition home or self-care (01) ==
LOC: LAB 13:58
PROVIDERS: PCP Family Medicine; Visit Provider Midwife
DX: Z13.0 Encounter for screening for diseases of the blood and blood-forming organs and certain disorders involving the immune mechanism (principal)
CPT/HCPCS: 36415

== ENCOUNTER 2024-12-17 10:07 | Observation (INO) | payer OTHER, SELFPAY ==
--- OUTSIDE RECORDS SUMMARY | 2024-12-11 09:30 | XMS_ITS | Encounter Summary ---
Author Organization [facility] Address [address] [place] [address] Care Team Providers Care Supply Room Clerk Name Role Phone Marguertie Hayes MD Primary Care Provider [phone] Karey Lan NP Unavailable [phone] Encounter Details DateTypeDepartmentCare Team (Latest Contact Info)Hcbgxmvdxfp27/28/2025 10:30 AM EDTAncillary Procedure [facility] [address] [place] [address] related condition in third trimester ([facility]) Social History Tobacco UseTypesPacks/DayYears UsedDateSmoking Tobacco: Every DaySmokeless Tobacco: Never Comments:Vapes daily Alcohol UseStandard Drinks/WeekCommentsNot Currently0 (1 standard drink = 0.6 oz pure alcohol)Caffeine intake: 1 redbull/soda dailyHumiliation, Afraid, Rape, and Kick questionnaireAnswerDate RecordedWithin the last year, have you been afraid of your partner or ex-partner?No03/17/2023Within the last year, have you been humiliated or emotionally abused in other ways by your partner or ex-partner?No 03/17/2023Within the last year, have you been kicked, hit, slapped, or otherwise physically hurt by your partner or ex-partner?No03/17/2023Within the last year, have you been raped or forced to have any kind of sexual activity by your part ner or ex-partner?No03/17/2023Social Connection and Isolation PanelAnswerDate RecordedIn a typical week, how many times do you talk on the phone with family, friends, or neighbors?Twice a week03/17/2023How often do you get together with friends or relatives?More than three times a week03/17/2023How often do you attend methodist or jewish services?1 to 4 times per year03/17/2023o you belong to any clubs or organizations such as methodist groups, unions, fraternal or athletic groups, or school groups?No03/17/2023How often do you attend meetings of the clubs or organizations you belong to?Patient hfnmdked86/01/2024re you , , , , never , or living with a partner? Never kabrrvh4403/17/2023UDIT-CAnswerDate RecordedQ1: How often do you have a drink containing alcohol?Never03/17/2023Q2: How many drinks containing alcohol do you have on a typical day when you are drinking?Patient does not drink 03/17/2023Q3: How often do you have six or more drinks on one occasion?Never 03/17/2023Overall Financial Resource Strain (CARDIA)AnswerDate RecordedHow hard is it for you to pay for the very basics like food, housing, medical care, and heating?Not very hard03/17/2023HQ-2AnswerDate RecordedPatient Health Questionnaire-2 Hcmcu42505/02/2024[facility] [place] [facility] - Occupational Stress QuestionnaireAnswerDate RecordedDo you feel stress - tense, restless, nervous, or anxious, or unable to sleep at night because yourmind is troubled all the time - these days?Very much03/17/2023Exercise Vital SignAnswer Date RecordedOn average, how many days per week do you engage in moderate to strenuous exercise (like a brisk walk)?7 days03/17/2023On average, how many minutes do you engage in exercise at this level?110 min03/17/2023Hunger Vital SignAnswerDate RecordedWithin the past 12 months, you worried that your food would run out before you got the money to buymore.Never true03/17/2023Within the past 12 months, the food you bought just didn't last and you didn't have money to get more.Never true02/01/2024PRAPARE - TransportationAnswerDate RecordedIn the past 12 months, has lack of transportation kept you from medical appointments or from getting medications?No03/17/2023In the past 12 months, has lack of transportation kept you from meetings, work, or from getting things needed for daily living?No03/17/2023Housing Stability Vital SignAnswerDate RecordedIn the last 12 months, was there a time when you were not able to pay the mortgage or rent on time?No03/17/2023In the last 12 months, how many places have you lived?In the last 12 months, was there a time when you did not have a steady place to sleep or slept in ashelter (including now)?No 03/17/2023Estimated Date of NfmtokacRpgtdwifNit00/14/2025Based on last menstrual period of 04/22/2024 (Exact Date)Sex and Gender InformationValueDate RecordedSex Assigned at BirthNot on fileLegal VirBsqxqi58/15/2023 7:17 PM EDT Gender JtiupoqaLmvtnw64/17/2023 10:57 AM EDTSexual OrientationNot on file documented as of this encounter Plan of Treatment Not on file documented as of this encounter Goals GoalPatient Goal TypeAssociated ProblemsRecent ProgressPatient-Stated?Author Reminders Care PlanOB RemindersNoOpen Scheduling, Backgrounddocumented as of this encounter Procedures Procedure NamePriorityDate/TimeAssociated DiagnosisCommentsUS OB FOLLOW UP TRANSABDOMINAL FITWYLMNPnjteah97/28/2025 11:13 AM EDT related condition in third trimester ([facility]) documented in this encounter Results * US OB follow up transabdominal approach (12/11/2024 11:13 AM EDT)Anatomical RegionLateralityModalityBodyUltrasoundSpecimen (Source)Anatomical Location / LateralityCollection Method / VolumeCollection TimeReceived Time12/11/2024 12:49 PM EDT Impressions 12/11/2024 12:59 PM EDT 1. Single, live intrauterine , current sonographic age of 33 weeks and 1 days, with an estimated date of delivery of January 28, 2025. 2. ??Comparison made with prior examination of September 05, 2024 date of delivery at that time was January 27, 2025 and weight percentile ws 46.0% 3. ??Anterior placenta with a accessory lobe posterior fundal region. * ??Estimated Weight (g) by Percentile is based upon an accurate estimated age based onlast menstrual period. ?? TRANSCRIBED BY: ? ELECTRONICALLY SIGNED BY: David New MD Narrative 12/11/2024 12:59 PM EDT FINDINGS: A single, live intrauterine is present with normal cardiac rate of ??129 beats per minute. Normal activity and amniotic fluid volume. Amniotic fluid index is ??14 cm. ??Morphology is grossly normal. The cervix is long and closed, ??4.3 cm. ??The placenta is anterior, not associated with the cervical os. ??The current sonographic age is 33 weeks and 1 days, based on the following measurements: BPD ?8.1cm ?? (32 weeks, 5 days) Head Circumference ?29.8cm (33 weeks, 0 days) Abdominal Circumference ?29.1cm (33 weeks, 1days) Femur Length ? 6.5cm (33 weeks, 3 days) Presentation ? Cephalic ? Placenta ? Anterior (posterior fundal accessory lobe) Weight (g) by Percentile ??42.5 % * These measurements result in an estimated date of delivery of January 28, 2025 ?? The current estimated weight is 2137 ?? grams (4 ??pound, 11 ??ounces). ?? Procedure Note David New MD - 12/11/2024 FINDINGS: A single, live intrauterine is present with normal cardiacrate of 129 beats per minute. Normal activity and amniotic fluidvolume. Amniotic fluid index is 14 cm. Morphology is grossly normal. Thecervix is long and closed, 4.3 cm. The placenta is anterior, notassociated with the cervical os. The current sonographic age is 33 weeksand 1 days, based on the following measurements: BPD 8.1cm (32 weeks, 5 days) Head Circumference 29.8cm (33 weeks, 0 days) Abdominal Circumference 29.1cm (33 weeks, 1days) Femur Length 6.5cm (33 weeks, 3 days) Presentation Cephalic Placenta Anterior (posteriorfundal accessory lobe) Weight (g) by Percentile 42.5 % * These measurements result in an estimated date of delivery of January The current estimated weight is 2137 grams (4 pound, 11ounces). IMPRESSION: 1. Single, live intrauterine , current sonographic age of 33weeks and 1 days, with an estimated date of delivery of January. 2. Comparison made with prior examination of September 05, 2024 date ofdelivery at that time was January 27, 2025 and weight percentile ws46.0% 3. Anterior placenta with a accessory lobe posterior fundal region. * Estimated Weight (g) by Percentile is based upon an accurateestimated age based on last menstrual period. TRANSCRIBED BY: ELECTRONICALLY SIGNED BY: David New MD Authorizing ProviderResult TypeResult StatusValeriana Sosa [facility] OB US PROCEDURESFinal Result documented in this encounter Visit Diagnoses Diagnosis related condition in third trimester ([facility]) documented in this encounter Additional Health Concerns Active ProblemsNoted DateDiagnosed DateOB Ccnlherbq66/06/2025 AssessmentNoted TimePHQ-9 Depression Total Score: 12:00 PM EDT documented as of this encounter Care Teams Team MemberRelationshipSpecialtyStart DateEnd Date Marguerite Hayes MD [address] [place] [address] PCP - GeneralFamily Medicine07/05/22 Karey Lan NP [address] [place] [address] [facility] CPC10documented as of this encounter
--- OUTSIDE RECORDS SUMMARY | 2024-12-11 10:30 | XMS_ITS | Encounter Summary ---
Author Organization [facility] Address [address] [place] [address] Care Team Providers Care Acid Treater Name Role Phone Marguerite Hayes MD Primary Care Provider [phone] Karey Lan NP Unavailable [phone] Encounter Details DateTypeDepartmentCare Team (Latest Contact Info)Ucrpallgnat12/28/2025 11:[address] [facility] [address] [place] [address] Juliet Sosa, CNM [address] [place], [place] [id number] Social History Tobacco UseTypesPacks/DayYears UsedDateSmoking Tobacco: Every [...] times a week03/17/2023How often do you attend protestant or holiness services?1 to 4 times per year03/17/2023o you belong to any clubs or organizations such as protestant groups, unions, fraternal or athletic groups, or school groups?No03/17/2023How often do you attend meetings of the clubs or organizations you belong to?Patient clmvwnja64/01/2024re you , , , , never , or living with a partner? Never gapmscp8803/17/2023UDIT-CAnswerDate RecordedQ1: How often do you have a [...] and heating?Not very hard03/17/2023HQ-2AnswerDate RecordedPatient Health Questionnaire-2 Yyfnu33605/02/2024[facility] [place] [facility] - Occupational Stress QuestionnaireAnswerDate [...] you didn't have money to get more.Never true03/17/2023RAPARE - TransportationAnswerDate RecordedIn the past 12 months, [...] in ashelter (including now)?No 03/17/2023Estimated Date of XjvuhhmhDjermhdoGka36/14/2025Based on last menstrual period of 04/22/2024 (Exact Date)Sex and Gender InformationValueDate RecordedSex Assigned at BirthNot on fileLegal DbrFowwxw51/15/2023 7:17 PM EDT Gender OdusictrUglpvi24/17/2023 10:57 AM EDTSexual OrientationNot on file documented as of this encounter Last Filed Vital Signs Vital SignReadingTime TakenCommentsBlood Ftpgzamh758/6010 11:24 AM EDT Pulse--Temperature--Respiratory Rate--Oxygen Saturation--Inhaled Oxygen Concentration--Nhresu15 kg (150 lb)12/11/2024 11:24 AM EDTHeight--Body Mass Index28.34005/02/2024 12:30 PM EDTdocumented in this encounter Plan of Treatment Not on file documented as of this encounter Goals GoalPatient Goal TypeAssociated ProblemsRecent ProgressPatient-Stated?Author Reminders Care PlanOB RemindersNoOpen Scheduling, Backgrounddocumented as of this encounter Visit Diagnoses Not on filedocumented in this encounter Additional Health Concerns Active ProblemsNoted DateDiagnosed DateOB Hihsvejii43/06/2025 AssessmentNoted TimePHQ-9 Depression Total Score: 12:00 PM EDT documented as of this encounter Care Teams Team MemberRelationshipSpecialtyStart DateEnd Date Marguerite Hayes MD [address] [place] [address] PCP - [facility]07/05/22 Karey Lan NP [address] [place] [address] PCP - [facility]11/15/23documented as of this encounter
--- OUTSIDE RECORDS SUMMARY | 2024-12-17 10:15 | XMS_ITS | Encounter Summary ---
Author Organization [facility] Address [address] [place] [address] Care Team Providers Care Underwriting Support Manager Name Role Phone Marguerite Hayes MD Primary Care Provider [phone] Karey Lan NP Unavailable [phone] Encounter Details DateTypeDepartmentCare Team (Latest Contact Info)Afstqftqmki07/28/2025Travel Social History Tobacco UseTypesPacks/DayYears UsedDateSmoking Tobacco: Every [...] times a week03/17/2023How often do you attend holiness or restorationist services?1 to 4 times per year03/17/2023o you belong to any clubs or organizations such as holiness groups, unions, fraternal or athletic groups, or school groups?No03/17/2023How often do you attend meetings of the clubs or organizations you belong to?Patient qayimsdc61/01/2024re you , , , , never , or living with a partner? Never xbnfuph1003/17/2023UDIT-CAnswerDate RecordedQ1: How often do you have a [...] and heating?Not very hard03/17/2023HQ-2AnswerDate RecordedPatient Health Questionnaire-2 Ckhjo65405/02/2024[facility] [place] of Occupational Health - Occupational Stress QuestionnaireAnswerDate [...] sleep or slept in ashelter (including now)?No 4Estimated Date of BryxbeamQsrfcuneRwn08/14/2025Based on last menstrual period of 04/22/2024 (Exact Date)Sex and Gender InformationValueDate RecordedSex Assigned at BirthNot on fileLegal YqcGrwcnh71/15/2023 7:17 PM EDT Gender XgtyppdcIhcybn10/17/2023 10:57 AM EDTSexual OrientationNot on file documented as of this encounter Plan of Treatment Not on file documented as of this encounter Goals GoalPatient Goal TypeAssociated ProblemsRecent ProgressPatient-Stated?Author Reminders Care PlanOB RemindersNoOpen Scheduling, Backgrounddocumented as of this encounter Visit Diagnoses Not on filedocumented in this encounter Additional Health Concerns Active ProblemsNoted DateDiagnosed DateOB Esgrhzato48/06/2025 AssessmentNoted TimePHQ-9 Depression Total Score: 12:00 PM EDT documented as of this encounter Care Teams Team MemberRelationshipSpecialtyStart DateEnd Date Marguerite Hayes MD [address] [place] [address] [facility] Karey Lan NP [address] [facility] [place] [address] PCP - [facility]11/15/23documented as of this encounter
--- OUTSIDE RECORDS SUMMARY | 2024-12-17 10:15 | XMS_ITS | Clinical Summary ---
Author Organization [facility] Healthcare Address [address] [facility] [place] [address] Care Team Providers Care Senior Ui Software Engineer Name Role Phone Marguerite Hayes MD Primary Care Provider [phone] Karey Lan NP Unavailable [phone] Allergies Active AllergyReactionsCriticalityNoted FzmcYqgsnwgcEfrfzydsjDqthgkkn19/01/2023 Medications MedicationSigDispense QuantityRefillsLast FilledStart DateEnd DateStatus cetirizine (ZyrTEC) 5 MG chewable tablet Chew Daily.Active levETIRAcetam (Keppra) 500 MG tablet 250mg in am 500mg pm5Active multivitamin () 27-0.8 MG tablet Indications:Wellness examinationTAKE 1 TABLET BY MOUTH EVERY DAY 90 tablet 5Active Active Problems ProblemNoted DateDiagnosed XtqoZvoztgbj34/19/2025Intractable migraine with status cuxttghbxtj78/19/2025ipolar 1 vtwwisex39/19/4310Vltksxrrktnx56/11/2023 Estimated Date of MjxcbnkfZmrccctkGhk17/14/2025Based on last menstrual period of 04/22/2024 (Exact Date) Encounters DateTypeDepartmentCare OwilJukoqfscqct46/03/2025Telephone [facility] [address] [place] [phone] Marguerite Hayes MD 12/11/2024 11:30 AM EDTRoutine [facility] [address] [place] [address] Shiela Sosa CNM 12/11/2024 10:30 AM EDTAncillary Procedure N[facility] [address] [place] [phone] related condition in third trimester ([facility])12/11/2024amboo flowsheet NOMGildardo [facility] [address] [facility] [place] [phone] Shiela Sosa CNM 12/11/20247160Cvinaj37/15/2025Results Follow-Up [facility]ardo [facility] [address] [facility] [place] [phone] Shiela Sosa CNM Comprehensive metabolic panel, Levetiracetam level11/28/2024Results Follow-Up [facility]Gildardo [facility] [address] [place] [phone] Shiela Sosa CNM Protein / creatinine ratio, urine11/27/2024 10:30 AM EDTRoutine NOMGildardo [facility] [address] [place] [phone] Shiela Sosa CNM Encounter for supervision of other normal , third trimester ([facility]) (Primary Dx); related condition in third trimester ([facility]); Seizure disorder (HCC)11/27/2024External Result Encounter NOMS External Department Unsolicited Shiela Sosa CNM 11/27/2024[facility] flowsheet NOMGildardo [facility] [address] [facility] [place] [phone] Shiela Sosa CNM 11/21/2024Results Follow-Up [facility]Gildardo [facility] [address] [place] [phone] Marguerite Edwards MA CBC, GLUCOSE, GESTATIONAL SCREEN (50G)-135 MASZDU6011/07/2024 11:00 AM EDTRoutine NOMS [facility] [address] [place] [phone] Shiela Sosa CNM Encounter for supervision of other normal , third trimester ([facility]) (Primary Dx); Screening for iron deficiency anemia; Screening for diabetes mellitus (DM); related condition in third trimester ([facility] flowsheet [facility] Corfukarly CURTIS [address] [place] [address] Shiela Sosa CNM 10/21/2024Refill [facility] [address] [place] [address] Karey Lan NP Wellness beglzzoplui96/26/2025External Result Encounter [facility] [place] [address] Shiela Sosa CNM 10/03/2024 9:30 AM EDTRoutine [facility] Jordan [facility] [place] [address] Shiela Sosa CNM Encounter for supervision of other normal , second trimester ([facility]) (Primary Dx); Seizure disorder (HCC)10/03/2024[facility] flowsheet [facility] HANNA [address] [place] [address] Shiela Sosa CNM from Last 3 Months Family History RelationNameStatusCommentsFatherAliveMotherAlive Social History Tobacco UseTypesPacks/DayYears UsedDateSmoking Tobacco: Every DaySmokeless Tobacco: Never Tobacco Cessation:Ready to Q uit: Not Asked; Counseling Given: Not Answered Comments:Vapes daily Alcohol UseStandard Drinks/WeekCommentsNot Currently0 (1 [...] times a week03/17/2023How often do you attend rastafarian or oriental orthodox services?1 to 4 times per year03/17/2023o you belong to any clubs or organizations such as rastafarian groups, unions, fraternal or athletic groups, or school groups?No03/17/2023How often do you attend meetings of the clubs or organizations you belong to?Patient zsytsoap04/01/2024re you , , , , never , or living with a partner? Never gsrnfzg4403/17/2023UDIT-CAnswerDate RecordedQ1: How often do you have a [...] and heating?Not very hard03/17/2023HQ-2AnswerDate RecordedPatient Health Questionnaire-2 Lspxg47505/02/2024Fin[facility] [place] of Occupational Health - Occupational Stress QuestionnaireAnswerDate [...] steady place to sleep or slept in [facility] (including now)?No 03/17/2023Estimated Date of TgobtierLduosvssNwr94/14/2025Based on last menstrual period of 04/22/2024 (Exact Date)Sex and Gender InformationValueDate RecordedSex Assigned at BirthNot on fileLegal FjbDrzebb62/15/2023 7:17 PM EDT Gender LwfctbwfVckfne10/17/2023 10:57 AM EDTSexual OrientationNot on file Last Filed Vital Signs Vital SignReadingTime TakenCommentsBlood Jdsgbkts169/6010/ 11:24 AM EDT Hlxwp601705/02/2024 12:30 PM CCACthzmsxodes80.3 ??C (97.4 ??F)05/02/2024 12:30 PM EDTRespiratory Rate--Oxygen Xutdzxjnla80%05/02/2024 12:30 PM EDTInhaled Oxygen Concentration--Mpycdt44 kg (150 lb)12/11/2024 11:24 AM BAPYrhqeu962.9 cm (5' 1 ) 05/02/2024 12:30 PM EDTBody Mass Index28.34005/02/2024 12:30 PM EDT Plan of Treatment Health MaintenanceDue DateLast DoneCommentsPneumococcal Vaccine: Pediatrics (0 to 5 Years) and At-Risk Patients (6 to 64 Years) (1 of 2 - PCV)12/13/2019COVID- 19 Vaccine (3 - 2024- season)5103/15/2020, 10/10/2020Influenza Vaccine (#1) Goals GoalPatient Goal TypeAssociated ProblemsRecent ProgressPatient-Stated?Author Reminders Care PlanOB RemindersNoOpen Scheduling, Background Procedures Procedure NamePriorityDate/TimeAssociated DiagnosisCommentsUS OB FOLLOW UP TRANSABDOMINAL OGUTOGDZBlwukff95/28/2025 11:13 AM EDT related condition in third trimester ([facility]) PROTEIN / CREATININE RATIO, ZMQAEPetdnng65/14/2025 4:09 PM EDT COMPREHENSIVE METABOLIC CXUYFCmcwfqj05/14/2025 1:15 PM EDT Seizure disorder (HCC) LEVETIRACETAM ELBIDApezijv71/14/2025 10:53 AM EDT related condition in third trimester ([facility]) GLUCOSE, GESTATIONAL SCREEN (50G)-135 EBSIIKBqknhmw31/24/2025 11:36 AM EDT Screening for diabetes mellitus (DM) KOKJfxvfhl59/24/2025 11:36 AM EDT Screening for iron deficiency anemia US OB 14+ WEEKS ANATOMY SCAN10/09/2024 11:33 AM EDT from Last 3 Months Results * US OB follow up transabdominal [...] New MD Authorizing ProviderResult TypeResult StatusValeriana Sosa [facility] US PROCEDURESFinal Result * Protein / creatinine ratio, urine (11/27/2024 4:09 PM EDT)ComponentValueRef RangeTest MethodAnalysis TimePerformed AtPathologist SignatureCREATININE, RANDOM WRUNC58658 - 275 mg/dLQUESTPROTEIN/CREATININE PXPDS69109 - 184 mg/g creatQUESTPROTEIN/CREATININE RATIO0.1210.024 - 0.184 mg/mg creatQUESTPROTEIN, TOTAL, RANDOM UR205 - 24 mg/dLQUESTSpecimen (Source)Anatomical Location / LateralityCollection Method / VolumeCollection TimeReceived Time11/27/2024 4:09 PM EDT1 4:09 PM EDT Narrative Resulting Agency Comment Performing Organization Information ?Site ID: QPT ?Name: [facility] ?Address: [address] [place] [address], [address] [place] [phone] ?Director: Rakesh Ann MD Authorizing ProviderResult TypeResult StatusValeriana Sosa CNMLAB URINE ORDERABLESFinal ResultPerforming OrganizationAddressCity/State/ZIP CodePhone Number [facility]ST * (ABNORMAL) Comprehensive metabolic panel (11/27/2024 1:15 PM EDT)Component ValueRef RangeTest MethodAnalysis TimePerformed AtPathologist SignatureGlucose 8465 - 99 mg/dLQUESTComment: ? Fasting reference interval BUN97 - 25 mg/dLQUESTCreatinine0.510.50 - 0.96 mg/kIDWUGHXXPO330> OR = 60 mL/min/1.95a6YHTYRWKM/CREATININE RATIOSEE NOTE: (calc)QUESTComment: ?? Not Reported: BUN and Creatinine are within ?? reference range. ? Jzzudd247726 - 146 mmol/LQUESTPotassium, Bld3.53.5 - 5.3 mmol/QMYMTPPkrqusmv204 98 - 110 mmol/LQUESTCarbon Vljvfjh5024 - 32 mmol/LQUESTCalcium8.68.6 - 10.2 mg/dLQUESTPROTEIN, TOTAL6.36.1 - 8.1 g/dLQUESTALBUMIN3.63.6 - 5.1 g/dLQUEST GLOBULIN2.71.9 - 3.7 g/dL (calc)QUESTALBUMIN/GLOBULIN RATIO1.31.0 - 2.5 (calc) QUESTBILIRUBIN, TOTAL0.20.2 - 1.2 mg/dLQUESTALKALINE ZHWEHHEKCHH2098 - 125 U/L QUESTAST9(L)10 - 30 U/MAVRFPWXU81 - 29 U/LQUESTSpecimen (Source)Anatomical Location / LateralityCollection Method / VolumeCollection TimeReceived TimeBlood Venous blood specimen / Gipnpmw17/ 1:15 PM EDT1 1:15 PM EDT Narrative Resulting Agency Comment Performing Organization Information ?Site ID: QPT ?Name: [facility] ?Address: [address] , [address] [place] [phone] ?Director: Rakesh Ann MD Authorizing ProviderResult TypeResult StatusValerie L Floro CNMLAB BLOOD ORDERABLESFinal ResultPerforming OrganizationAddressCity/State/ZIP CodePhone Number [facility] * (ABNORMAL) Levetiracetam level (11/27/2024 10:53 AM EDT)ComponentValueRef RangeTest MethodAnalysis TimePerformed AtPathologist SignatureLEVETIRACETAM <2.0(L)mcg/mLQUESTComment: ? Reference Range: 12.0-46.0 ? Toxic level is not well ? established. Interpretation ? should include a clinical ? evaluation. ? For additional information, please refer to http://education.[employer]/faq/BKM382 (This link is being provided for informational/educational purposes only.) This test was developed and its analytical performance characteristics have been determined by [employer]. It has not been cleared or approved by the FDA. This assay has been validated pursuant to the CLIA regulations and is used for clinical purposes. Specimen (Source)Anatomical Location / LateralityCollection Method / Volume Collection TimeReceived TimeBloodVenous blood specimen / Akwqknz3411/27/2024 10:53 AM EDT1 10:54 AM EDT Narrative Resulting Agency Comment Performing Organization Information ?Site ID: [id number] ?Name: [facility] ?Address: [address] [place] [address], [address] [place] [address] ?Director: Lenard Fermin MD Authorizing ProviderResult TypeResult StatusValerie L Floro CNMLAB BLOOD ORDERABLESFinal ResultPerforming OrganizationAddressCity/State/ZIP CodePhone Number [facility] * GLUCOSE, GESTATIONAL SCREEN (50G)-135 CUTOFF (11/07/2024 11:36 AM EDT) ComponentValueRef RangeTest MethodAnalysis TimePerformed AtPathologist SignatureGLUCOSE, GESTATIONAL SCREEN (50G)-135 XUWHXM529<135 mg/dLQUEST Specimen (Source)Anatomical Location / LateralityCollection Method / Volume Collection TimeReceived Time11/07/2024 11:36 AM EDT11/07/2024 11:36 AM EDT Narrative Resulting Agency Comment Performing Organization Information ?Site ID: QPT ?Name: [facility] ?Address: [address] [place] [phone] ?Director: Rakesh Ann MD Authorizing ProviderResult TypeResult StatusValeeris Sosa [facility] BLOOD ORDERABLESFinal ResultPerforming OrganizationAddressCity/State/ZIP CodePhone Number [facility] * CBC (11/07/2024 11:36 AM EDT)ComponentValueRef RangeTest MethodAnalysis Time Performed AtPathologist SignatureWHITE BLOOD CELL COUNT8.83.8 - 10.8 Thousand/uLQUESTRED BLOOD CELL COUNT3.983.80 - 5.10 Million/uLQUESTHEMOGLOBIN 12.211.7 - 15.5 g/gGQHZRHWYVCFWDUFZ25.935.0 - 45.0 %JRXLOFNQ42.780.0 - 100.0 kGGBVSDEXU74.727.0 - 33.0 kpFKCTINLQU37.132.0 - 36.0 g/dLQUESTComment: For adults, a slight decrease in the calculated MCHC value (in the range of 30 to 32 g/dL) is most likely not clinically significant; however, it should be interpreted with caution in correlation with other red cell parameters and the patient's clinical condition. RDW12.211.0 - 15.0 %QUESTPLATELET WBVQE105263 - 400 Thousand/kNWVPRBKZM64.67.5 - 12.5 fLQUESTSpecimen (Source)Anatomical Location / LateralityCollection Method / VolumeCollection TimeReceived TimeBloodVenous blood specimen / Dwaekev4411/07/2024 11:36 AM EDT11/07/2024 11:36 AM EDT Narrative Resulting Agency Comment Performing Organization Information ?Site ID: QPT ?Name: [facility] ?Address: Viv Sosa , [address] [place] [address] ?Director: Rakesh Ann MD Authorizing ProviderResult TypeResult StatusValeeris Sosa CNMLAB BLOOD ORDERABLESFinal ResultPerforming OrganizationAddressCity/State/ZIP CodePhone Number [facility] * US OB 14+ weeks anatomy scan (10/09/2024 11:33 AM EDT)Anatomical Region LateralityModalityBodyUltrasoundSpecimen (Source)Anatomical Location / LateralityCollection Method / VolumeCollection TimeReceived Time10/09/2024 11:33 AM EDT Narrative 10/09/2024 11:33 AM EDT THIS EXAM WAS PERFORMED AT [facility] NAME: ??LUIS MOSER : 2000 SEX: F Accession Number: [id number] ORDERING PHYSICIAN: SHIELA SOSA REFERRING PHYSICIAN: SHIELA SOSA Coding Procedures ? 01188: Ultrasound, uterus, real time with image documentation, and maternal evaluation ? plus detailed anatomic examination, transabdominal approach;single or first gestation Indication Screening for Anatomic Survey, Maternal anemia, Seizure disorder in . History OB History ? 2. Para 1 ? B2Q4T0A8 Current Cell free DNA ?low risk analysis Maternal Assessment Physical Exam ??Height 155 cm, 5 ft 1 in. Weight 65 kg, 143 lb. Initial weight 56 kg, 124 lb. BMI 27.02 kg/m???. Initial ? BMI 23.43 kg/m???. Weight gain 9 kg, 19 lb Method Transabdominal ultrasound examination. View: Suboptimal view: limited by position. Watters . Number of fetuses: 1 Dating LMP on: ?04/22/2024 GA by LMP ?24 w + 2 d TAI by LMP: ?01/27/2025 Previous Ultrasound on: ?06/15/2024 Type of prior assessment: ?GA GA at prior assessment date ?7 w + 4 d GA by previous U/S ? 24 w + 1 d TAI by previous Ultrasound: ?01/28/2025 Ultrasound examination on: ? 10/09/2024 GA by U/S based upon: ??AC, BPD, Femur, HC GA by U/S ?24 w + 5 d TAI by U/S: ?01/24/2025 Assigned: ?based on the LMP, selected on 10/09/2024 Assigned GA (weeks days) ? 24 w + 2 d Assigned TAI: ??01/27/2025 General Evaluation Cardiac activity Present. FHR 146 bpm. Presentation: cephalic Placenta: Placental site: anterior, left lateral, away from cervical os Umbilical cord: Cord vessels: 3 vessel cord. Insertion site: normal insertion Amniotic fluid: Amount of AF: normal amount. MVP 4.3 cm Biometry Standard BPD ?61.0 mm 24w 6d 63% Hadlock OFD ?80.7 mm 26w 2d 96% Vishal HC ? 226.5 mm ?24w 5d 46% Hadlock Cerebellum tr ??27.3 mm 24w 2d 64% Hill Nuchal fold ?4.6 mm AC ? 194.2 mm ?24w 1d 36% Hadlock Femur ??45.8 mm 25w 1d 66% Hadlock Humerus ?39.9 mm 24w 2d 39% Vishal HC / AC ?1.17 EFW ?714 g ?55% Hadlock EFW (lb) ? 1 lb EFW (oz) ? 9 oz EFW by: ?Hadlock (DZY-RM-HX-FL) Extended Tibia ??37.0 mm 23w 6d 37% Vishal Director Of Product Management ? 5.3 mm CM ? 6.9 mm ?? 76% Nicolaides Inner IOD ?12.1 mm Outer IOD ?40.3 mm Head / Face / Neck Cephalic index 0.76 ? 20% Nicolaides Nasal bone: ?present Extremities / Bony Struc FL / BPD ? 0.75 FL / HC ?0.20 FL / AC ?0.24 Other Structures FHR ?146 bpm Anatomy The following structures appear normal: Head/Neck: Cranium. Lateral ventricles. Choroid plexus. Midline falx. Cavum septi pellucidi. Cerebellum. Cisterna ? magna. Parenchyma. Vermis. ? Neck. Face: Lips. Profile. Nose. Nasal bone. Maxilla. Mandible. Orbits. Heart/Thorax: 3-vessel view. Situs. Aortic arch view. Bicaval view. Cardiac position. Cardiac axis.Cardiac size. ? Cardiac rhythm. ? Right lung. Left lung. Abdomen: Abdom. wall. Cord insertion. Stomach. Kidneys. Bladder. Small bowel. Large bowel. Right renal artery. ? Left renal artery. Genitals. Spine: Cervical spine. Thoracic spine. Lumbar spine. Sacral spine. Extremities/Skeleton: Right upper arm. Right forearm. Right hand. Left upper arm. Left forearm. Left hand. Right upper leg. ? Right lower leg. Right foot. Left upper leg. Left lower leg. Left foot. The following structures could not be adequately visualized: Heart / Thorax 4-chamber view. 1-qntdct-mowudab view. Interventricular septum. ? Diaphragm. The following structures could not be examined: Heart / Thorax RVOT view. LVOT view. Ductal arch view. Great vessels. Maternal Structures Uterus Visualized Cervix Visualized ? Approach - Transabdominal Right Ovary ?Not visualized Left Ovary ? Not visualized Cul de Sac ? Visualized. No free fluid visualized Impression Single viable intrauterine consistent with 24w 2d with an TAI of 01/27/2025. Amniotic fluid MVP measures 4.3 cm. Recommendations Please see [facility] documentation from today. The patient is scheduled in four to six week(s) to complete anatomic survey. Subsequent follow up or other follow up as clinically determined by primary OB provider unless otherwise specified by [facility]. Results forwarded to ordering provider so they can follow up with the patient as necessary. Procedure Note Radiology, Radiologist, - 10/09/2024 THIS EXAM WAS PERFORMED AT [facility] NAME: LUIS MOSER : 2000 SEX: F Accession Number: [id number] ORDERING PHYSICIAN: SHIELA SOSA REFERRING PHYSICIAN: SHIELA SOSA Coding Procedures 06396: Ultrasound, uterus, real time with image documentation, and maternal evaluation plus detailed anatomic examination, transabdominalapproach;single or first gestation Indication Screening for Anatomic Survey, Maternal anemia, Seizure disorder inpregnancy. History OB History 2. Para 1 F8O1V6D8 Current Cell free DNA low risk analysis Maternal Assessment Physical Exam Height 155 cm, 5 ft 1 in. Weight 65 kg, 143 lb. Initialweight 56 kg, 124 lb. BMI 27.02 kg/m???. Initial BMI 23.43 kg/m???. Weight gain 9 kg, 19 lb Method Transabdominal ultrasound examination. View: Suboptimal view: limited byfetal position. Watters . Number of fetuses: 1 Dating LMP on: 04/22/2024 GA by LMP 24 w + 2 d TAI by LMP: 01/27/2025 Previous Ultrasound on: 06/15/2024 Type of prior assessment: GA GA at prior assessment date 7 w + 4 d GA by previous U/S 24 w + 1 d TAI by previous Ultrasound: 01/28/2025 Ultrasound examination on: 10/09/2024 GA by U/S based upon: AC, BPD, Femur, HC GA by U/S 24 w + 5 d TAI by U/S: 01/24/2025 Assigned: based on the LMP, selected on 10/09/2024 Assigned GA (weeks days) 24 w + 2 d Assigned TAI: 01/27/2025 General Evaluation Cardiac activity Present. FHR 146 bpm. Presentation: cephalic Placenta: Placental site: anterior, left lateral, away from cervical os Umbilical cord: Cord vessels: 3 vessel cord. Insertion site: normalinsertion Amniotic fluid: Amount of AF: normal amount. MVP 4.3 cm Biometry Standard BPD 61.0 mm 24w 6d 63% Hadlock OFD 80.7 mm 26w 2d 96% Vishal HC 226.5 mm 24w 5d 46% Hadlock Cerebellum tr 27.3 mm 24w 2d 64% Hill Nuchal fold 4.6 mm AC 194.2 mm 24w 1d 36% Hadlock Femur 45.8 mm 25w 1d 66% Hadlock Humerus 39.9 mm 24w 2d 39% Vishal HC / AC 1.17 EFW 714 g 55% Hadlock EFW (lb) 1 lb EFW (oz) 9 oz EFW by: Hadlock (YGL-FS-KO-FL) Extended Tibia 37.0 mm 23w 6d 37% Vishal Director Of Product Management 5.3 mm CM 6.9 mm 76% Nicolaides Inner IOD 12.1 mm Outer IOD 40.3 mm Head / Face / Neck Cephalic index 0.76 20% Nicolaides Nasal bone: present Extremities / Bony Struc FL / BPD 0.75 FL / HC 0.20 FL / AC 0.24 Other Structures FHR 146 bpm Anatomy The following structures appear normal: Head/Neck: Cranium. Lateral ventricles. Choroid plexus. Midline falx.Cavum septi pellucidi. Cerebellum. Cisterna magna. Parenchyma. Vermis. Neck. Face: Lips. Profile. Nose. Nasal bone. Maxilla. Mandible. Orbits. Heart/Thorax: 3-vessel view. Situs. Aortic arch view. Bicaval view.Cardiac position. Cardiac axis. Cardiac size. Cardiac rhythm. Right lung. Left lung. Abdomen: Abdom. wall. Cord insertion. Stomach. Kidneys. Bladder. Smallbowel. Large bowel. Right renal artery. Left renal artery. Genitals. Spine: Cervical spine. Thoracic spine. Lumbar spine. Sacral spine. Extremities/Skeleton: Right upper arm. Right forearm. Right hand. Leftupper arm. Left forearm. Left hand. Right upper leg. Right lower leg. Right foot. Left upper leg. Left lower leg. Leftfoot. The following structures could not be adequately visualized: Heart / Thorax 4-chamber view. 3-bbxouz-hdxmpkg view. Interventricularseptum. Diaphragm. The following structures could not be examined: Heart / Thorax RVOT view. LVOT view. Ductal arch view. Great vessels. Maternal Structures Uterus Visualized Cervix Visualized Approach - Transabdominal Right Ovary Not visualized Left Ovary Not visualized Cul de Sac Visualized. No free fluid visualized Impression Single viable intrauterine consistent with 24w 2d with an TAI of 01/27/2025. Amniotic fluid MVP measures 4.3 cm. Recommendations Please see [facility] documentation from today. The patient is scheduled in four to six week(s) to complete anatomicsurvey. Subsequent follow up or other follow up as clinically determined byprimary OB provider unless otherwise specified by [facility]. Results forwarded to ordering provider so they can follow up with thepatient as necessary. Authorizing ProviderResult TypeResult StatusValerie Nancy Sosa CNMIMG OB US PROCEDURESFinal Result from Last 3 Months Additional Health Concerns Active ProblemsNoted DateDiagnosed DateOB Itdjnsfbl77/06/2025 Insurance * Guarantor: Eddie Lester AAccount TypeRelation to PatientDate of PhoneBilling AddressPersonal/KphtuaYzvw17/29/2001 [id number] [place] [address] [facility] Address: [facility] [id number] [place] [phone] Care Teams Team MemberRelationshipSpecialtyStart Date Marguerite Hayes MD [address] [facility] [place] [address] [facility] Karey Lan NP [address] [facility] [place] [place] [id number] PCP - [facility]11/15/23
--- OUTSIDE RECORDS SUMMARY | 2024-12-17 10:15 | XMS_ITS | Encounter Summary ---
Author Organization [facility] Address [address] [place] [address] Care Team Providers Care Tortilla Maker Name Role Phone Marguerite Hayes MD Primary Care Provider [phone] Karey Lan NP Unavailable [phone] Encounter Details DateTypeDepartmentCare Team (Latest Contact Info)Nyguzdzidzo11/28/2025amboo flowsheet [facility] OBGYN [address] [place] [address] Juliet Sosa, CNM [address] [place], [place] [id number] Social History Tobacco UseTypesPacks/DayYears UsedDateSmoking Tobacco: Every [...] times a week03/17/2023How often do you attend baptism or yazidi services?1 to 4 times per year03/17/2023o you belong to any clubs or organizations such as baptism groups, unions, fraternal or athletic groups, or school groups?No03/17/2023How often do you attend meetings of the clubs or organizations you belong to?Patient nhquetzc49/01/2024re you , , , , never , or living with a partner? Never qxohwsi7103/17/2023UDIT-CAnswerDate RecordedQ1: How often do you have a [...] and heating?Not very hard03/17/2023HQ-2AnswerDate RecordedPatient Health Questionnaire-2 Mpmlp88305/02/2024[facility] [place] of [facility] - Occupational Stress QuestionnaireAnswerDate [...] you didn't have money to get more.Never true4PRAPARE - TransportationAnswerDate RecordedIn the past 12 months, [...] in ashelter (including now)?No 4Estimated Date of TqjokcnnOigoxwnxHfm15/14/2025Based on last menstrual period of 04/22/2024 (Exact Date)Sex and Gender InformationValueDate RecordedSex Assigned at BirthNot on fileLegal QyiXlribg88/15/2023 7:17 PM EDT Gender GzzdpdgqRvfdvf03/17/2023 10:57 AM EDTSexual OrientationNot on file documented as of this encounter Plan of Treatment Not on file documented as of this encounter Goals GoalPatient Goal TypeAssociated ProblemsRecent ProgressPatient-Stated?Author Reminders Care PlanOB RemindersNoOpen Scheduling, Backgrounddocumented as of this encounter Visit Diagnoses Not on filedocumented in this encounter Additional Health Concerns Active ProblemsNoted DateDiagnosed DateOB Onebdgykc14/06/2025 AssessmentNoted TimePHQ-9 Depression Total Score: 12:00 PM EDT documented as of this encounter Care Teams Team MemberRelationshipSpecialtyStart DateEnd Date Marguerite Hayes MD [address] [place] [address] PCP - GeneralFamily Medicine07/05/22 Karey Lan NP [address] [place] [address] [facility]10documented as of this encounter
--- OUTSIDE RECORDS SUMMARY | 2024-12-17 10:15 | XMS_ITS | Encounter Summary ---
Author Organization [facility] Address [address] [place] [address] Care Team Providers Care Compensation Business Partner Name Role Phone Marguerite Hayes MD Primary Care Provider [phone] Karey Lan NP Unavailable [phone] Encounter Details DateTypeDepartmentCare Team (Latest Contact Info)Xoqclbqivff58/03/2025Telephone [facility] Medicine [address] [place] [address] Marguerite Hayes MD [address] [place] [address] Social History Tobacco UseTypesPacks/DayYears UsedDateSmoking Tobacco: Every [...] times a week03/17/2023How often do you attend jehovah's witness or jainism services?1 to 4 times per year03/17/2023o you belong to any clubs or organizations such as jehovah's witness groups, unions, fraternal or athletic groups, or school groups?No03/17/2023How often do you attend meetings of the clubs or organizations you belong to?Patient yojdsocf37/01/2024re you , , , , never , or living with a partner? Never mflquiv0903/17/2023UDIT-CAnswerDate RecordedQ1: How often do you have a [...] and heating?Not very hard03/17/2023HQ-2AnswerDate RecordedPatient Health Questionnaire-2 Htgat03905/02/2024[facility] [place] of [facility] Health - Occupational Stress QuestionnaireAnswerDate [...] in ashelter (including now)?No 03/17/2023Estimated Date of UkihhzooNumztfwfGxb09/14/2025ased on last menstrual period of 04/22/2024 (Exact Date)Sex and Gender InformationValueDate RecordedSex Assigned at BirthNot on fileLegal NmxSedigf66/15/2023 7:17 PM EDT Gender PiauegdlJwkdtn23/17/2023 10:57 AM EDTSexual OrientationNot on file documented as of this encounter Miscellaneous Notes * Telephone Encounter - Tasneem Guerra - 12/17/2024 8:15 AM EST Patient calling this morning- she is 34 weeks and started spotting last nite at 8PM while working. She is still spotting this morning. Movement is good. I placed a call to Alisha who is going to follow up with patient. documented in this encounter Plan of Treatment Not on file documented as of this encounter Goals GoalPatient Goal TypeAssociated ProblemsRecent ProgressPatient-Stated?Author Reminders Care PlanOB RemindersNoOpen Scheduling, Backgrounddocumented as of this encounter Visit Diagnoses Not on filedocumented in this encounter Additional Health Concerns Active ProblemsNoted DateDiagnosed DateOB Wuehbaeme38/06/2025 AssessmentNoted TimePHQ-9 Depression Total Score: 12:00 PM EDT documented as of this encounter Care Teams Team MemberRelationshipSpecialtyStart DateEnd Marguerite Hayes MD [address] [place], [place] [id number] [facility] - [facility] Karey Lan NP [address] [place], [place] [id number] PCP - [facility]11/15/23documented as of this encounter
--- NOTE | 2024-12-17 10:19 | US_ITS ---
The [address] [address] Patient Name: EHSAN SMITH MRN: [facility]:[id number] date: 2000 Sex: F Assigned Patient Location: [facility] Current Patient Location: [facility] Accession/Order Number: [id number] Exam Date: 12/17/2024 10:30 Report Date: 12/17/2024 11:10 At the request of: SHIELA ALVAREZ APRN CNTimi Procedure: US OB cervical length CLINICAL DATA: Cramping and spotting for the past week. BIOPHYSICAL PROFILE: COMPARISON: None There is a single live intrauterine gestation in cephalic presentation. The reported gestational age is 34 weeks 1 day. The heart rate measures 154 beats per minute. FINDINGS: TONE: 1 or more episodes of activity extension and flexion of extremity or opening and closing of the hand [Y] 2/2 GROSS BODY MOVEMENTS: 3 or more discrete body or limb movements [Y] 2/2 BREATHING MOVEMENTS: 1 or more episodes of breathing lasting at least 30 seconds [Y] 2/2 DARRIUS: A single deepest vertical pocket of amniotic fluid greater than 2 cm [Y] 2/2 DARRUIS: 13.9 cm Total score: 8/8 US/US OB placenta IMPRESSION: NORMAL BIOPHYSICAL PROFILE ULTRASOUND OB PLACENTA COMPARISON: None The placenta is anterior and is unremarkable in appearance and position. An accessory lobe of the placenta is also identified measuring 5.0 x 4.1 x 6.8 cm in size. There is no evidence of abruption. IMPRESSION: NO SIGNIFICANT ABNORMALITIES INVOLVING THE PLACENTA. OB CERVICAL LENGTH COMPARISON: None The cervix was evaluated with the transvaginal probe. The cervix is closed with estimated length of approximately 4.1 cm. There is no evidence of previa. IMPRESSION: UNREMARKABLE CLOSED CERVIX. Impression dictated by: Gabi Vick M.D. 12/17/2024 11:10 AM Dictation Location: [place] [address] Electronically authenticated by: [id number] Y Date: 12/17/2024 11:10
--- NOTE | 2024-12-17 10:19 | US_ITS ---
The [address] [address] Patient Name: EHSAN SMITH MRN: [facility]:[id number] date: 2000 Sex: F Assigned Patient Location: [facility] Current Patient Location: [facility] Accession/Order Number: [id number] Exam Date: 12/17/2024 10:30 Report Date: 12/17/2024 11:10 At the request of: SHIELA ALVAREZ APRN CNTimi Procedure: US OB cervical length CLINICAL DATA: Cramping and spotting for the past week. BIOPHYSICAL PROFILE: COMPARISON: None There is a single live intrauterine gestation in cephalic presentation. The reported gestational age is 34 weeks 1 day. The heart rate measures 154 beats per minute. FINDINGS: TONE: 1 or more episodes of activity extension and flexion of extremity or opening and closing of the hand [Y] 2/2 GROSS BODY MOVEMENTS: 3 or more discrete body or limb movements [Y] 2/2 BREATHING MOVEMENTS: 1 or more episodes of breathing lasting at least 30 seconds [Y] 2/2 DARRIUS: A single deepest vertical pocket of amniotic fluid greater than 2 cm [Y] 2/2 DARRIUS: 13.9 cm Total score: 8/8 US/US OB BPP w non-stress IMPRESSION: NORMAL BIOPHYSICAL PROFILE ULTRASOUND OB PLACENTA COMPARISON: None The placenta is anterior and is unremarkable in appearance and position. An accessory lobe of the placenta is also identified measuring 5.0 x 4.1 x 6.8 cm in size. There is no evidence of abruption. IMPRESSION: NO SIGNIFICANT ABNORMALITIES INVOLVING THE PLACENTA. OB CERVICAL LENGTH COMPARISON: None The cervix was evaluated with the transvaginal probe. The cervix is closed with estimated length of approximately 4.1 cm. There is no evidence of previa. IMPRESSION: UNREMARKABLE CLOSED CERVIX. Impression dictated by: Gabi Vick M.D. 12/17/2024 11:10 AM Dictation Location: [place] [address] Electronically authenticated by: [id number] Y Date: 12/17/2024 11:10
--- NOTE | 2024-12-17 10:19 | US_ITS ---
The [address] [address] Patient Name: EHSAN SMITH MRN: [facility]:[id number] date: 2000 Sex: F Assigned Patient Location: [facility] Current Patient Location: [facility] Accession/Order Number: [id number] Exam Date: 12/17/2024 10:30 Report Date: 12/17/2024 11:10 At the request of: SHIELA ALVAREZ APRN CNTimi Procedure: US OB cervical length CLINICAL DATA: Cramping and spotting for the past week. BIOPHYSICAL PROFILE: COMPARISON: None There is a single live intrauterine gestation in cephalic presentation. The reported gestational age is 34 weeks 1 day. The heart rate measures 154 beats per minute. FINDINGS: TONE: 1 or more episodes of activity extension and flexion of extremity or opening and closing of the hand [Y] 2/2 GROSS BODY MOVEMENTS: 3 or more discrete body or limb movements [Y] 2/2 BREATHING MOVEMENTS: 1 or more episodes of breathing lasting at least 30 seconds [Y] 2/2 DARRIUS: A single deepest vertical pocket of amniotic fluid greater than 2 cm [Y] 2/2 DARRIUS: 13.9 cm Total score: 8/8 US/US OB cervical length IMPRESSION: NORMAL BIOPHYSICAL PROFILE ULTRASOUND OB PLACENTA COMPARISON: None The placenta is anterior and is unremarkable in appearance and position. An accessory lobe of the placenta is also identified measuring 5.0 x 4.1 x 6.8 cm in size. There is no evidence of abruption. IMPRESSION: NO SIGNIFICANT ABNORMALITIES INVOLVING THE PLACENTA. OB CERVICAL LENGTH COMPARISON: None The cervix was evaluated with the transvaginal probe. The cervix is closed with estimated length of approximately 4.1 cm. There is no evidence of previa. IMPRESSION: UNREMARKABLE CLOSED CERVIX. Impression dictated by: Gabi Vick M.D. 12/17/2024 11:10 AM Dictation Location: [place] [address] Electronically authenticated by: [id number] Y Date: 12/17/2024 11:10
[2024-12-17 10:51] VITALS: BP 112/62; PULSE 78; TEMP 36.1
[2024-12-17 10:56] LABS: Glucose Urine UA NEGATIVE (NEGATIVE)
== END 2024-12-17 11:37 | disposition home or self-care (01) ==
PROVIDERS: Admitting Provider Midwife; PCP Family Medicine; Visit Provider Midwife
DX: O26.853 Spotting complicating pregnancy, third trimester (principal); Z3A.34 34 weeks gestation of pregnancy
CPT/HCPCS: 76815; 76817; 76818; 81003; G0378; G0379